=== PATIENT | female | born 1955 | race Caucasian/White ===

== ENCOUNTER 2021-09-12 13:42 | Emergency (ER) | payer MEDICARE, OTHER ==
[~2021-09-12] VITALS: Ht 157.5 cm; Wt 88.5 kg
[2021-09-12] MEDS ORDERED: AMIT75TA2 PO (14:14)
[2021-09-12] MEDS ORDERED: ASPI81TA31 PO (14:14)
[2021-09-12] MEDS ORDERED: AMLO-212 PO (14:14)
[2021-09-12] MEDS ORDERED: METF-440 PO (14:14)
[2021-09-12] MEDS ORDERED: DULO60CA45 PO (14:14)
[2021-09-12] MEDS ORDERED: ATOR20TA PO (14:14)
[2021-09-12] MEDS ORDERED: PRED20TA PO (15:58)
[2021-09-12] MEDS ORDERED: BENZ-13 PO (15:58)
[2021-09-12] MEDS ORDERED: AMOX-430 PO (15:58)
[2021-09-12] MEDS ORDERED: ALBU18HF2 INH (15:58)
[2021-09-12] MEDS ORDERED: AZIT1PAC9 PO (15:58)
--- NOTE | 2021-09-12 16:19 | NUR ---
PT SEEN AND EXAMINED BY DR POTTER. COVID TEST NEGATIVE. D/C INSTRUCTIONS GIVEN BY .
[2021-09-12 16:20] VITALS: BP 138/88
== END 2021-09-12 16:00 | disposition home or self-care (01) ==
LOC: ER 13:42
DX: J40 Bronchitis, not specified as acute or chronic (principal); Z20.822 Contact with and (suspected) exposure to COVID-19; E78.5 Hyperlipidemia, unspecified; I12.9 Hypertensive chronic kidney disease with stage 1 through stage 4 chronic kidney disease, or unspecified chronic kidney disease; E11.22 Type 2 diabetes mellitus with diabetic chronic kidney disease; N18.9 Chronic kidney disease, unspecified; Z79.84 Long term (current) use of oral hypoglycemic drugs; Z79.82 Long term (current) use of aspirin; Z79.899 Other long term (current) drug therapy; F32.A Depression, unspecified
CPT/HCPCS: 71045; 87426; 93005; 99285; U0003; A4663

== ENCOUNTER 2022-05-05 11:42 | Emergency (ER) | payer BC, OTHER ==
[~2022-05-05] VITALS: Ht 157.5 cm; Wt 88.5 kg
[~2022-05-05 11:42] MED LIST: ALBU18HF2 INH; AMIT75TA2 PO; AMLO-212 PO; AMOX-430 PO; ASPI81TA31 PO; ATOR20TA PO; AZIT1PAC9 PO; BENZ-13 PO; DULO60CA45 PO; METF-440 PO; PRED20TA PO
[2022-05-05] MEDS ORDERED: IV NORMAL SALINE 1000 ML BAG IV ONE (12:00)
[2022-05-05] MEDS ORDERED: METOCLOPRAMIDE HCL 10 MG/2 ML VIAL IV ONE (12:00)
--- NOTE | 2022-05-05 12:00 | NUR ---
IN ED WITH REPORT OF WORSENING SANCHEZ. GREATER THAN COUPLE OF WEEKS.CROWN OF HEAD, ACHING, THROBBING AND PRESSURE IN QUALITY. TREATED WITH TYLENOL ES NO RELIEF. 20 G SL INSERTED INTO RT HAND AND FLUIDS, NS WO. SISTER AT BEDSIDE.A,A AND O X4, DENIES N/V. 8/10 ON A SCALE OF 1-10.SEEN BY MD AND NEW ORDERS NOTED
[2022-05-05] MEDS ORDERED: METOCLOPRAMIDE HCL 10 MG/2 ML VIAL ONE (12:07)
--- NOTE | 2022-05-05 12:18 | NUR ---
DR SIMS AT BEDSIDE FOR EVALUATION. URINE SPECIMEN SENT TO LAB.
[2022-05-05 12:44] LABS: *BILIRUBIN,URIN NEGATIVE (NEGATIVE); *BLOOD, URINE NEGATIVE (NEGATIVE); *CLARITY,URINE CLEAR (CLEAR); *COLOR,URINE YELLOW (YELLOW); *KETONES,URINE NEGATIVE (NEGATIVE); *UROBILINOGEN,URINE 0.2 E.U./dl (NORMAL); LEUKOCYTE ESTERASE ,URINE 1+ (NEGATIVE); NITRITE, URINE NEGATIVE (NEGATIVE); UGLUCOSE 2+ (NEGATIVE)
--- NOTE | 2022-05-05 12:46 | NUR ---
FS POC 110, NS INFUSING AND REGLAN 10 MG IVP ADMINISTERED.LIGHTS OFF AND RESTING COMFORTABLY.
--- NOTE | 2022-05-05 13:02 | NUR ---
IVF INFUSED 1000 ML AND HEADACHE DOWN TO 5/10. NORCO 5/325 MG PO.SISTER DRIVING PATIENT
[2022-05-05] MEDS ORDERED: HYDROCODONE/APAP 5-325MG TABLET ONE (13:05)
[2022-05-05] MEDS ORDERED: HYDROCODONE/APAP 5-325MG TABLET PO ONE (13:15)
--- NOTE | 2022-05-05 13:20 | NUR ---
PAIN DOWN FROM 8/10 TO 5/10. SL DISCONTINUED WITH CATH INTACT.
[2022-05-05 13:54] VITALS: BP 136/89
[2022-05-05 17:08] LABS: RBC,URINE 0-3 /HPF (0-3)
[2022-05-05 17:09] LABS: BACTERIA,URINE FEW /HPF (NONE SEEN); SQUAMOUS EPITHELIAL CELL,UR FEW /HPF (NONE SEEN)
== END 2022-05-05 14:18 | disposition home or self-care (01) ==
LOC: ER 11:42
DX: R51.9 Headache, unspecified (principal); E78.5 Hyperlipidemia, unspecified; I12.9 Hypertensive chronic kidney disease with stage 1 through stage 4 chronic kidney disease, or unspecified chronic kidney disease; E11.22 Type 2 diabetes mellitus with diabetic chronic kidney disease; N18.9 Chronic kidney disease, unspecified; Z79.84 Long term (current) use of oral hypoglycemic drugs; Z79.82 Long term (current) use of aspirin; Z79.899 Other long term (current) drug therapy; F32.A Depression, unspecified
CPT/HCPCS: 99284; 96374; 96361; 81001; 82962; 87086; J2765; J7040; A4663

== ENCOUNTER 2022-08-30 10:33 | Emergency (ER) | payer BC, OTHER ==
[~2022-08-30] VITALS: Ht 157.5 cm; Wt 80.7 kg
[2022-08-30 11:20] LABS: *BILIRUBIN,URIN NEGATIVE (NEGATIVE); *BLOOD, URINE NEGATIVE (NEGATIVE); *CLARITY,URINE CLEAR (CLEAR); *COLOR,URINE YELLOW (YELLOW); *KETONES,URINE NEGATIVE (NEGATIVE); *UROBILINOGEN,URINE 0.2 E.U./dl (NORMAL); LEUKOCYTE ESTERASE ,URINE NEGATIVE (NEGATIVE); NITRITE, URINE NEGATIVE (NEGATIVE); UGLUCOSE 3+ (NEGATIVE)
== END 2022-08-30 12:19 | disposition home or self-care (01) ==
LOC: ER 10:33
DX: R30.0 Dysuria (principal); E11.9 Type 2 diabetes mellitus without complications; I10 Essential (primary) hypertension; E78.5 Hyperlipidemia, unspecified; Z79.84 Long term (current) use of oral hypoglycemic drugs; Z79.82 Long term (current) use of aspirin; Z79.899 Other long term (current) drug therapy; F32.A Depression, unspecified
CPT/HCPCS: A4663